=== PATIENT | female | born 1965 | race Caucasian/White ===

== ENCOUNTER 2017-12-01 23:58 | Emergency (ER) | payer MEDICAID, OTHER ==
[~2017-12-01] VITALS: Ht 162.6 cm; Wt 98.9 kg
[2017-12-02] MEDS ORDERED: AMIT25TA9 (00:41)
[2017-12-02] MEDS ORDERED: FENO160T12 (00:41)
[2017-12-02] MEDS ORDERED: GABA-488 (00:41)
[2017-12-02] MEDS ORDERED: LOSA100T28 (00:41)
[2017-12-02] MEDS ORDERED: METF750T2 (00:41)
[2017-12-02] MEDS ORDERED: RANI150T11 (00:41)
--- NOTE | 2017-12-02 01:10 | ED Back Pain ---
General Chief Complaint: Back Problems Stated Complaint: BACK PAIN,RT LEG & KNEE PAIN Nursing Triage Note: lower back pain Nursing Sepsis Screen: No Definite Risk Source of Information: Patient Exam Limitations: No Limitations History of Present Illness Date Seen by Provider: Dec 02, 2017 Time Seen by Provider: 01:04 Initial Comments Patient presents to the ER by private conveyance with a chief complaint for the past couple days she's had a re-flare of her sciatica pain on the right side. She says for many years she's had a bulging disc at her L5-S1 that has caused her to have sciatic pain right more than left. Tonight she had a little incontinence. She says that this is known and then worked up by her primary care physician she has plans when she gets back home to have MRI of her back this week as well as she has referrals to orthopods, pain specialist etc. She has poorly controlled diabetes on metformin without insulin and an A1c recently of about 9. She takes medicines for her blood pressure. She has never had coronary artery disease however she has had some ulcers in her stomach and had to have emergency surgery for a perforated bleeding ulcer about 6 months ago so she avoids NSAIDs. She says what aggravated her pain is because her daughter is giving and she's had to lay on an uncomfortable couch up stairs in the OB floor. The patient is from [place], [place]. Allergies and Home Medications Allergies Coded Allergies: No Known Drug Allergies (Unverified , 12/02/17) Patient Home Medication List Home Medication List Reviewed: Yes Constitutional: No chills, No diaphoresis, No fever, No malaise EENTM: No ear discharge, No ear pain Respiratory: No cough, No phlegm Cardiovascular: No chest pain, No Hx of Intervention, No palpitations Gastrointestinal: No abdominal pain, No constipation, No diarrhea, No nausea Genitourinary: No discharge, No dysuria Musculoskeletal: see HPI, back pain, joint pain Past Vjbeuzr-Udvjwc-Mklpxm Hx Patient Social History Alcohol Use: Denies Use Recreational Drug Use: No Smoking Status: Current Everyday Smoker Type Used: Cigarettes 2nd Hand Smoke Exposure: Yes Recent Foreign Travel: No Contact w/Someone Who Travel: No Recent Infectious Disease Expo: No Recent Hopitalizations: No Seasonal Allergies Seasonal Allergies: Yes Surgeries History of Surgeries: Yes Surgeries: Abdominal, Appendectomy, Orthopedic, Tubal Ligation Respiratory History of Respiratory Disorde: No Cardiovascular History of Cardiac Disorders: No Neurological History of Neurological Disord: Yes Neurological Disorders: Headaches /Migraines 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 Genitourinary History of Genitourinary Disor: No Gastrointestinal History of Gastrointestinal Di: Yes Gastrointestinal Disorders: Gastroesophageal Reflux Musculoskeletal History of Musculoskeletal Dis: Yes Musculoskeletal Disorders: Arthritis, Fibromyalgia, Chronic Back Pain Endocrine History of Endocrine Disorders: Yes Endocrine Disorders: Diabetes, Non-Insulin dep HEENT History of HEENT Disorders: No Cancer History of Cancer: No Psychosocial History of Psychiatric Problem: No Integumentary History of Skin or Integumenta: No Blood Transfusions History of Blood Disorders: No Physical Exam Vital Signs Vital Signs - First Documented 12/02/17 00:30 Temp 98.2 Pulse 99 Resp 16 B/P (MAP) 128/83 (98) Pulse Ox 97 O2 Delivery Room Air Capillary Refill : Less Than 3 Seconds General Appearance: No Apparent Distress, WD/WN HEENT: PERRL/EOMI, Pharynx Normal Neck: Full Range of Motion, Normal Inspection, Non Tender Cardiovascular: Regular Rate, Rhythm, No Edema Respiratory: No Accessory Muscle Use, No Respiratory Distress Peripheral Pulses: 2+ Dorsalis Pedis (R), 2+ Left Dors-Pedis (L), 2+ Radial Pulses (R), 2+ Radial Pulses (L) Back: Normal Inspection, Vertebral Tenderness (lumbar midline and across the L5 -S1 facet joint) Extremity: Normal Capillary Refill, No Calf Tenderness Neurologic/Psychiatric: Alert, Oriented x3, No Motor/Sensory Deficits, Normal Mood/Affect, chemical educator II-XII Norm as Tested Skin: Normal Color, Warm/Dry Additional Procedures : Progress L5-S1 intra-articular injection. Patient had the risks benefits and alternatives discussed and she consented to the procedure. A mixture of 7 mg dexamethasone, 4 mL of 1% lidocaine without epinephrine and 4 mL of 0.5% Marcaine with epinephrine and a 25-gauge 1-1/2 inch needle was prepared. Side of her pain on the right L5-S1 was marked and then the site was cleaned thoroughly using Betadine followed by alcohol. After it dried needle was introduced, aspirated without any blood return and then an injection of the mixture was tolerated well. Patient was beginning to have some relief of the time the procedure was done. A Band-Aid was applied after the site was wiped again with alcohol and the wound was hemostatic. Patient tolerated the procedure well. Progress/Results/Core Measures Results/Orders My Orders Orders - [place] BAJWA Lidocaine 1% (Xylocaine 1%) (12/02/17 01:15) Bupivacaine 0.5% W/Epi Inj (Sensorcaine (12/02/17 01:15) Dexamethasone Injection (Decadron Inject (12/02/17 01:15) Bupivacaine 0.5% Injection (Sensorcaine (12/02/17 01:17) Bupivacaine 0.5% Injection (Sensorcaine (12/02/17 01:18) Medications Given in ED Current Medications Medications Dose Ordered Sig/Noah Route Start Time Stop Time Status Last Admin Dose Admin Bupivacaine HCl/ Epinephrine Bitart 30 ml ONCE ONCE INJ 12/02/17 01:15 12/02/17 01:16 DC 12/02/17 01:26 30 ML Dexamethasone Sodium Phosphate 10 mg ONCE ONCE IM 12/02/17 01:15 12/02/17 01:16 DC 12/02/17 01:25 10 MG Lidocaine HCl 50 ml ONCE ONCE IJ 12/02/17 01:15 12/02/17 01:16 DC 12/02/17 01:25 50 ML Vital Signs/I&O Vital Sign - Last 12Hours 12/02/17 00:30 Temp 98.2 Pulse 99 Resp 16 B/P (MAP) 128/83 (98) Pulse Ox 97 O2 Delivery Room Air Blood Pressure Mean: 98 Progress Note : Time: 01:07 Progress Note Patient has point tenderness over the L5-S1 facet joint with sciatica down to her knee and incontinence. She has imaging set up this week as well as extensive follow-up from her primary care doctor. She would prefer to keep these appointments rather than do a CT tonight that would need repeated as an MRI just a few days later. 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 We'll plan to put a L5-S1 facet joint intra-articular injection of dexamethasone, Marcaine with epinephrine and lidocaine 1%. We've discussed the risks benefits and alternatives and how we'll affect her blood pressure and blood sugar and she is okay to proceed. Departure Impression Impression: Primary Impression: Lumbago Qualified Codes: M54.41 - Lumbago with sciatica, right side Disposition: 01 HOME, SELF-CARE Condition: Improved Departure-Patient Inst. Decision time for Depature: 01:46 Referrals: NO,LOCAL PHYSICIAN (PCP/Family) Primary Care Physician Patient Instructions: Low Back Pain (DC) Add. Discharge Instructions: Stay mobile use Tylenol 1000 mg every 6 hours and get some icy hot or other similar cream to put over your back. Get a back brace and wear it on the days that it helps. Keep your follow-up appointment this week with your primary care physician's appointments and imaging studies. If you're pain or incontinence worsens you should return to care. All discharge instructions reviewed with patient and/or family. Voiced understanding. WELLINGTON BAJWA Dec 02, 2017 01:10
[2017-12-02] MEDS ORDERED: DEXAMETHASONE 10 MG/ML (DECADRON) 1 ML VIAL IM ONE (01:15)
[2017-12-02] MEDS ORDERED: LIDOCAINE 1% INJ 50 ML (XYLOCAINE) VIAL IJ ONE (01:15)
[2017-12-02] MEDS ORDERED: BUP/EPI 0.5% 1:200,000 (SENSORCAINE) 30 ML VIAL INJ ONE (01:15)
[2017-12-02] MEDS ORDERED: BUPIVACAINE 0.5% 30 ML (SENSORCAINE) VIAL ONE ×2 (01:17→01:18)
[2017-12-02 01:50] VITALS: BP 124/79
--- OUTSIDE RECORDS SUMMARY | 2017-12-03 06:42 | XMS REPORT | Continuity of Care Document ---
Author Author [facility]. Organization [facility]. 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 Ampul.neb., 2.5 Mg Ih As needed Unknown Discontinued Amoxicillin (Amoxil*) 500 Mg Capsule Capsule, 500 Mg Po Three times daily Discontinued Duloxetine Hydrochloride (Cymbalta) 60 Mg Cap Cap, 60 Mg Po Twice daily Unknown Discontinued Hydrocodone/Acetaminophen ([place]) 5 Mg/325 Mg Tablet Tablet, 1-2 Tab Po Q4-6 HR PRN Pain 06/22/16 Discontinued Metformin Hydrochloride (Metformin) 500 Mg Tab Tab, 500 Mg Po Twice daily Unknown Discontinued Pantoprazole (Protonix) 40 Mg Tablet Tablet, 40 Mg Po Once daily Unknown Discontinued Rabeprazole (Aciphex) 20 Mg Tablet Tablet, 1 Tab Po Twice daily Unknown Discontinued Trazodone Hydrochloride (Trazadone Hydrochloride) 100 Mg Tab Tab, 100 Mg Po At bedtime Unknown Discontinued Amlodipine (Norvasc) 10 Mg Tablet Tablet, 10 Mg Po Once a day Unknown Discontinued Diltiazem (Cardizem) 30 Mg Tablet Tablet, 30 Mg Po Twice daily Unknown Discontinued Metronidazole (Flagyl) 500 Mg Tablet Tablet, 500 Mg Po Three times daily Discontinued Oxycodone/Acetaminophen (Percocet) 5 Mg/325 Mg Tablet Tablet, 1-2 Tab Po Every six hours as needed PRN NEEDED FOR PAIN 11/06/16 Discontinued Family History Relationship Name Date of Condition Age ( At Onset ) Cause of Age ( At ) Age Gender Recorded Date/Time SISTER Family history of malignant neoplasm F 01/03/17 2246 Social History Problem Response Recorded Date Occupation/Former Occupation: UNEMPLOYED 10/22/10 Query Response Start Date Stop Date Smoking status: Current every day smoker Hospital Discharge Instructions No hospital discharge instructions. Plan of Care Discharge Date 01/03/17 Disposition 01-HOME, SELF-CARE,ASST LIVING Condition at Discharge Stable Instructions/Education Provided Knee Pain (DC) Prescriptions See Medications Section Referrals [facility] - Additional Instructions/Education return for worsening pain, swelling, weakness, numbness or any other concern. followup with primary care in the next 1 week for a repeat evaluation. ICE your R knee regularly. Keep it elevated for the next several days. Use charu wrap for compression to help reduce swelling. Some of your test results may not be complete prior to your leaving the Emergency Department. The Emergency Department is not authorized to give test results over the phone. Please contact the doctor's office listed on this form for your final results. Follow up with your primary care physician or return to the Emergency Department for worsening or worrisome symptoms. * Emergency Department phone number: [phone] MEDICAL RECORD If you need copies of your X-rays, call [phone]. If you need copies of your medical record, including lab results, a signed authorization for release of records will be required. A telephone call for release of Health Information is not allowed. BILLING Billing can sometimes be confusing and frustrating. To help avoid confusion in the future, please take a moment to acquaint yourself with the billing parties for services. SERVICE [employer] [facility] [phone] X-rays [facility] Patients will receive bills for services from the appropriate provider. If you have any questions about your [facility] bill, our staff will be happy to assist you. Please call [phone] and ask for the billing department. THANK YOU for choosing [facility] as your emergency care provider. Care Plan and Goals CP~~Discharge Care Plan~~ Problem: Knee pain Goal: Decreased level of pain. Return to usual activities. Instructions: Take medication(s) as directed; follow up with primary care physician as directed; follow patient home care instructions. 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 Immunizations No Known History of Immunizations. Vital Signs Vital Reading Collection Date/Time Result Blood Pressure 01/03/17 10:44pm 176/85 Blood Pressure Source 01/03/17 10:44pm Sitting Patient Temperature 01/03/17 10:01pm 98.5 Temperature Source 01/03/17 10:01pm Oral Respiratory Rate 01/03/17 10:01pm 20 Pulse Rate 01/03/17 10:44pm 80 Pulse Location 01/03/17 10:44pm Pulse Oximetry Bedside Pulse Oximetry 01/03/17 10:44pm 100 Height 01/03/17 10:01pm 162.6 cm Height 01/03/17 10:01pm 5 ft 04 in Weight 01/03/17 10:01pm 94.5 kg Weight 01/03/17 10:01pm 208.0 lb Body Mass Index 01/03/17 10:01pm 35.7 Results No known relevant diagnostic tests, laboratory data and/or discharge summary. Procedures No Known History of Procedures. Encounters Encounter Location Arrival/Admit Date Discharge/Depart Date Attending Provider Departed Emergency [facility] 01/03/17 9:54pm 01/03/17 10:45pm Shoaib Russell MD Encounter Diagnosis Effusion of right knee
--- OUTSIDE RECORDS SUMMARY | 2017-12-03 06:42 | XMS REPORT | Continuity of Care Document ---
Author Author [facility]. Organization [facility]. 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 Medications Current Home Medications Medication Dose Units Route Directions Days/Qty Instructions Start Date Metformin Hydrochloride (Metformin) 500 MG TAB 500 MG PO Twice daily Trazodone Hydrochloride (Trazadone Hydrochloride) 100 MG TAB 100 MG PO At bedtime amLODIPine (Norvasc) 10 MG TABLET 10 MG PO Once a day diltiaZEM (Cardizem) 30 MG TABLET 30 MG PO Twice daily oxyCODONE/Acetaminophen (Percocet) 5 MG/325 MG TABLET 1-2 TAB PO Every six hours as needed PRN NEEDED FOR PAIN 20 11/06/16 Past Home Medications Medication Directions Ordered Status Albuterol (Proventil 0.083% Neb Soln) 2.5 Mg/3 Ml Ampul.neb. Ampul.neb., 2.5 Mg Ih As needed Unknown Discontinued Amoxicillin (Amoxil*) 500 Mg Capsule Capsule, 500 Mg Po Three times daily Discontinued Duloxetine Hydrochloride (Cymbalta) 60 Mg Cap Cap, 60 Mg Po Twice daily Unknown Discontinued Hydrocodone/Acetaminophen ([place]) 5 Mg/325 Mg Tablet Tablet, 1-2 Tab Po Q4-6 HR PRN Pain 06/22/16 Discontinued Pantoprazole (Protonix) 40 Mg Tablet Tablet, 40 Mg Po Once daily Unknown Discontinued Rabeprazole (Aciphex) 20 Mg Tablet Tablet, 1 Tab Po Twice daily Unknown Discontinued Metronidazole (Flagyl) 500 Mg Tablet Tablet, 500 Mg Po Three times daily Discontinued Family History Relationship Name Date of Condition Age ( At Onset ) Cause of Age ( At ) Age Gender Recorded Date/Time SISTER Family history of malignant neoplasm F 11/06/16 0510 Social History Problem Response Recorded Date Occupation/Former Occupation: UNEMPLOYED 10/22/10 Query Response Start Date Stop Date Smoking status: Current every day smoker Hospital Discharge Instructions No hospital discharge instructions. Plan of Care Discharge Date 11/06/16 Disposition 01-HOME, SELF-CARE,ASST LIVING Condition at Discharge Stable Instructions/Education Provided Oxycodone and Acetaminophen How to Use Crutches Hemarthrosis Prescriptions See Medications Section Referrals [facility] [place] - 1-2 days [facility] - Additional Instructions/Education USE CRUTCHES UNTIL YOU CAN WALK WITHOUT PAIN. USE THE CARLI WRAP AND ELEVATE YOUR LEG ABOVE YOUR HEART FOR THE NEXT 3-4 DAYS. USE ICE FOR THE NEXT 2 DAYS AND THEN ALTERNATE ICE AND HEAT. RETURN IMMEDIATELY FOR FEVERS, INCREASED PAIN, REDNESS OR ANY OTHER CONCERNS. Some of your test results may not [...] worrisome symptoms. * Emergency Department phone number: [phone] MEDICAL RECORD If you need copies of your X-rays, call [phone]. If you need copies of your medical [...] [facility] [employer] [facility] ED Physician Services [phone] X-rays [facility] Patients will receive bills for services from the appropriate provider. If you have any questions about your [facility] bill, our staff will be happy to assist you. Please call [phone] and ask for the billing department. THANK YOU for choosing [facility] as your emergency care provider. Care Plan and Goals ~~Discharge Care Plan~~ Problem: Sprain, strain or fracture of extremity Goal: Extremity will be pink and warm to touch, with good movement of fingers or toes. Instructions: Apply ice bag and elevate extremity above the level of your heart. Monitor extremity for pink color to fingers or toes and movement. Call your physician if extremity becomes blue in color or cool to touch. Some swelling of fingers or toes is expected, continue to wiggle fingers and toes and keep elevated. Allow 24-48 hours for the splint to dry completely. Do not place splint on a hard surface to avoid a pressure area. Take medication(s) as directed. Follow up with Orthopedic or primary care physician as directed. Functional Status No functional status results. Allergies, Adverse Reactions, Alerts Allergen Type Severity Reaction Status Last Updated aspirin Allergy Unknown Hives Active 11/06/16 Immunizations Name Date Given Type Tetanus Unknown Historical Vital Signs Vital Reading Collection Date/Time Result Blood Pressure 11/06/16 3:51am 136/94 Patient Temperature 11/06/16 3:51am 98.6 Temperature Source 11/06/16 3:51am Oral Respiratory Rate 11/06/16 4:40am 20 Pulse Rate 11/06/16 4:40am 104 Bedside Pulse Oximetry 11/06/16 4:40am 99 Height 11/06/16 3:51am 162.6 cm Height 11/06/16 3:51am 5 ft 04 in Weight 11/06/16 3:51am 92.7 kg Weight 11/06/16 3:51am 204.0 lb Body Mass Index 11/06/16 3:51am 35.1 Results Laboratory Results Test Name Result Units Flags Reference Collection Date/Time Result Date/ Time Comments Synovial Fluid WBC 4639 /mm3 H 200-600 11/06/16 5:45am 11/06/16 6:54am Synovial Fluid RBC [id number] /mm3 H 0-0 11/06/16 5:45am 11/06/16 6:54am Synovial Fluid Polynuclear WBCs % 58.5 % H 0-25 11/06/16 5:45am 6:54am Synovial Fluid Mononuclear WBCs % 41.5 % 0-75 11/06/16 5:45am 11/06/16 6:54am White Blood Count 15.1 K/mm3 H 4.8-10.8 11/06/16 4:20am 11/06/16 4:32am Red Blood Count 5.43 M/mm3 H 4.10-5.30 11/06/16 4:20am 11/06/16 4:32am Hemoglobin 11.2 g/dl L 12.5-16.0 11/06/16 4:20am 11/06/16 4:32am Hematocrit 37.8 % 37.0-47.0 11/06/16 4:20am 11/06/16 4:32am Mean Corpuscular Volume 70 fl L 80.0-100.0 11/06/16 4:20am 11/06/16 4: 32am Mean Corpuscular Hemoglobin 21 pg L 27.0-31.0 11/06/16 4:20am 11/06/16 4 :32am Mean Corpuscular Hemoglobin Concent 30 g/dl L 33.0-37.0 11/06/16 4:20am 11/06/16 4:32am Red Cell Distribution Width 15.1 % H 11.5-14.5 11/06/16 4:20am 11/06/16 4:32am Platelet Count 370 K/mm3 130-400 11/06/16 4:20am 11/06/16 4:32am Mean Platelet Volume 11.0 fl H 7.4-10.4 11/06/16 4:20am 11/06/16 4:32am Granulocytes (%) 68.1 % 42.2-75.2 11/06/16 4:20am 11/06/16 4:32am Lymphocytes % 20.3 % 20.0-51.0 11/06/16 4:20am 11/06/16 4:32am Monocytes % 9.0 % 1.7-9.3 11/06/16 4:20am 11/06/16 4:32am Eosinophils % 1.7 % 0-4.0 11/06/16 4:20am 11/06/16 4:32am Basophils % 0.6 % 0.0-2.0 11/06/16 4:20am 11/06/16 4:32am Granulocytes # 10.3 H 1.4-6.5 11/06/16 4:20am 11/06/16 4:32am Lymphocytes # 3.1 1.2-3.4 11/06/16 4:20am 11/06/16 4:32am Monocytes # 1.4 H 0.1-0.6 11/06/16 4:20am 11/06/16 4:32am Eosinophils # 0.3 0.0-0.7 11/06/16 4:20am 11/06/16 4:32am Basophils # 0.1 0.0-0.2 11/06/16 4:20am 11/06/16 4:32am Erythrocyte Sedimentation Rate 5 mm/hr 0-20 11/06/16 4:20am 11/06/16 6: 23am Prothrombin Time 10.7 SECONDS 9.7-12.8 11/06/16 4:20am 11/06/16 6:00am INR International Normalized Ratio 1.0 0.8-3.0 11/06/16 4:20am 6:00am Partial Thromboplastin Time - Tommy 34.8 SECONDS 26.0-37.0 11/06/16 4: 20am 11/06/16 6:00am Glucose Level 183 mg/dL H 74-106 11/06/16 4:20am 11/06/16 4:49am Blood Urea Nitrogen 18 mg/dL H 7-11/06/16 4:20am 11/06/16 4:49am Creatinine 0.77 mg/dL 0.52-1.25 11/06/16 4:20am 11/06/16 4:49am Estimated GFR () 96 11/06/16 4:20am 11/06/16 4: 49am Estimated GFR (Non- 79 11/06/16 4:20am 11/06/16 4: 49am eGFR Interpretation: Chronic Kidney Disease=CKD CKD STAGE I > or=90 mL/min/1.73 square meters STAGE II 60 - 89 STAGE III 30 - 59 STAGE IV 15 - 29 STAGE V <15 NOTE: The MDRD Study equation has not been validated for use with the elderly (over 70 years of age), women, patients with serious comorbid conditions, or persons with extremes of body size, muscle mass, or nutritional status. Sodium Level 136 mmol/L L 137-145 11/06/16 4:20am 11/06/16 4:49am Potassium Level 4.5 mmol/L 3.4-5.0 11/06/16 4:20am 11/06/16 4:49am Chloride Level 101 mmol/L 98-107 11/06/16 4:20am 11/06/16 4:49am Carbon Dioxide Level 23 mmol/L 22-30 11/06/16 4:20am 11/06/16 4:49am Anion Gap 12 mmol/L 7-11/06/16 4:20am 11/06/16 4:49am Uric Acid 3.6 mg/dL 2.5-6.2 11/06/16 4:20am 11/06/16 4:59am Calcium Level 10.3 mg/dL H 8.4-10.2 11/06/16 4:20am 11/06/16 4:49am Calcium Adjusted for Albumin 10.0 mg/dL 8.4-10.2 11/06/16 4:20am 4:49am Serum Total Protein 7.6 gm/dL 6.4-8.2 11/06/16 4:20am 11/06/16 4:49am Albumin 4.4 gm/dL 3.5-5.0 11/06/16 4:20am 11/06/16 4:49am Total Bilirubin 0.6 mg/dL 0.0-1.0 11/06/16 4:20am 11/06/16 4:49am Aspartate Amino Transf (AST/SGOT) 21 U/L 15-37 11/06/16 4:20am 4:49am Alanine Aminotransferase (ALT/SGPT) 40 U/L 9-52 11/06/16 4:20am 4:49am Alkaline Phosphatase 85 U/L 50-136 11/06/16 4:20am 11/06/16 4:49am C-Reactive Protein 0.7 mg/dL 0.0-0.9 11/06/16 4:20am 11/06/16 4:49am Procedures No Known History of Procedures. Encounters Encounter Location Arrival/Admit Date Discharge/Depart Date Attending Provider Departed Emergency [facility] 11/06/16 3:35am 11/06/16 7 :35am VERONICA AVELAR Encounter Diagnosis Hemarthrosis
--- OUTSIDE RECORDS SUMMARY | 2017-12-03 06:44 | XMS REPORT | Continuity of Care Document ---
Author Author [facility] Organization [facility] Address Unknown Phone Unavailable Allergies There is no data. Medications There is no data. Problems Date Dx Coded Attending Type Code Diagnosis Diagnosed By 01/24/2008 CHUYITA JULIEN 250.00 DIABETES MELLITUS 01/24/2008 CHUYITA JULIEN 278.00 OBESITY 01/24/2008 CHUYITA JULIEN 305.1 NICOTINE DEPENDENCE 01/24/2008 CHUYITA JULIEN 719.46 Pain in Joint Involving Lower Leg 01/24/2008 CHUYITA JULIEN 729.81 SWELLING OF LIMB 01/24/2008 CHUYITA JULIEN V58.69 LONG-TERM (CURRENT) USE OF OTHER MEDICATIONS 01/24/2008 CHUYITA JULIEN V68.1 visit for: issue repeat prescription for medication 01/24/2008 CHUYITA JULIEN V77.91 SCREENING FOR LIPOID DISORDERS 01/24/2008 CHUYITA JULIEN V81.5 SCREENING FOR NEPHROPATHY 01/24/2008 250.00 DIABETES MELLITUS 01/24/2008 278.00 OBESITY 01/24/2008 305.1 NICOTINE DEPENDENCE 01/24/2008 719.46 Pain in Joint Involving Lower Leg 01/24/2008 729.81 SWELLING OF LIMB 01/24/2008 V58.69 LONG-TERM ( CURRENT) USE OF OTHER MEDICATIONS 01/24/2008 V68.1 visit for: issue repeat prescription for medication 01/24/2008 V77.91 SCREENING FOR LIPOID DISORDERS 01/24/2008 V81.5 SCREENING FOR NEPHROPATHY 01/24/2008 250.00 DIABETES MELLITUS 01/24/2008 278.00 OBESITY 01/24/2008 305.1 NICOTINE DEPENDENCE 01/24/2008 719.46 Pain in Joint Involving Lower Leg 01/24/2008 729.81 SWELLING OF LIMB 01/24/2008 V58.69 LONG-TERM ( CURRENT) USE OF OTHER MEDICATIONS 01/24/2008 V68.1 visit for: issue repeat prescription for medication 01/24/2008 V77.91 SCREENING FOR LIPOID DISORDERS 01/24/2008 V81.5 SCREENING FOR NEPHROPATHY 01/24/2008 RUSS AKINS MD 250.00 DIABETES MELLITUS 01/24/2008 RUSS AKINS MD 278.00 OBESITY 01/24/2008 RUSS AKINS MD 305.1 NICOTINE DEPENDENCE 01/24/2008 RUSS AKINS MD 719.46 Pain in Joint Involving Lower Leg 01/24/2008 RUSS AKINS MD 729.81 SWELLING OF LIMB 01/24/2008 RUSS AKINS MD V58.69 LONG-TERM (CURRENT) USE OF OTHER MEDICATIONS 01/24/2008 RUSS AKINS MD V68.1 visit for: issue repeat prescription for medication 01/24/2008 RUSS AKINS MD V77.91 SCREENING FOR LIPOID DISORDERS 01/24/2008 RUSS AKINS MD V81.5 SCREENING FOR NEPHROPATHY 01/24/2008 250.00 DIABETES MELLITUS 01/24/2008 278.00 OBESITY 01/24/2008 305.1 NICOTINE DEPENDENCE 01/24/2008 719.46 Pain in Joint Involving Lower Leg 01/24/2008 729.81 SWELLING OF LIMB 01/24/2008 V58.69 LONG-TERM ( CURRENT) USE OF OTHER MEDICATIONS 01/24/2008 V68.1 visit for: issue repeat prescription for medication 01/24/2008 V77.91 SCREENING FOR LIPOID DISORDERS 01/24/2008 V81.5 SCREENING FOR NEPHROPATHY 01/24/2008 RUSS AKINS MD 250.00 DIABETES MELLITUS 01/24/2008 RUSS AKINS MD 278.00 OBESITY 01/24/2008 RUSS AKINS MD 305.1 NICOTINE DEPENDENCE 01/24/2008 RUSS AKINS MD 719.46 Pain in Joint Involving Lower Leg 01/24/2008 RUSS AKINS MD 729.81 SWELLING OF LIMB 01/24/2008 RUSS AKINS MD V58.69 LONG-TERM (CURRENT) USE OF OTHER MEDICATIONS 01/24/2008 RUSS AKINS MD V68.1 visit for: issue repeat prescription for medication 01/24/2008 RUSS AKINS MD V77.91 SCREENING FOR LIPOID DISORDERS 01/24/2008 RUSS AKINS MD V81.5 SCREENING FOR NEPHROPATHY 01/24/2008 250.00 DIABETES MELLITUS 01/24/2008 278.00 OBESITY 01/24/2008 305.1 NICOTINE DEPENDENCE 01/24/2008 719.46 Pain in Joint Involving Lower Leg 01/24/2008 729.81 SWELLING OF LIMB 01/24/2008 V58.69 LONG-TERM ( CURRENT) USE OF OTHER MEDICATIONS 01/24/2008 V68.1 MEDICATION MANAGEMENT 01/24/2008 V77.91 SCREENING FOR LIPOID DISORDERS 01/24/2008 V81.5 SCREENING FOR NEPHROPATHY 01/24/2008 DORETHA FLORICULTURE TEACHER, TRUDY K 250.00 DIABETES MELLITUS 01/24/2008 DORETHA FLORICULTURE TEACHER, TRUDY K 278.00 OBESITY 01/24/2008 DORETHA FLORICULTURE TEACHER, TRUDY K 305.1 NICOTINE DEPENDENCE 01/24/2008 DORETHA FLORICULTURE TEACHER, TRUDY K 719.46 Pain in Joint Involving Lower Leg 01/24/2008 DORETHA FLORICULTURE TEACHER, TRUDY K 729.81 SWELLING OF LIMB 01/24/2008 DORETHA FLORICULTURE TEACHER, TRUDY K V58.69 LONG-TERM (CURRENT) USE OF OTHER MEDICATIONS 01/24/2008 DORETHA CULP TRUDY K V68.1 MEDICATION MANAGEMENT 01/24/2008 DORETHA CULP TRUDY K V77.91 SCREENING FOR LIPOID DISORDERS 01/24/2008 DORETHA CULP TRUDY K V81.5 SCREENING FOR NEPHROPATHY 01/24/2008 PILI ZAVALA DO 250.00 DIABETES MELLITUS 01/24/2008 PILI ZAVALA DO 278.00 OBESITY 01/24/2008 PILI ZAVALA DO 305.1 NICOTINE DEPENDENCE 01/24/2008 PILI ZAVALA DO 719.46 Pain in Joint Involving Lower Leg 01/24/2008 PILI ZAVALA DO 729.81 SWELLING OF LIMB 01/24/2008 PILI ZAVALA DO V58.69 LONG-TERM (CURRENT) USE OF OTHER MEDICATIONS 01/24/2008 PILI ZAVALA DO V68.1 MEDICATION MANAGEMENT 01/24/2008 PILI ZAVALA DO V77.91 SCREENING FOR LIPOID DISORDERS 01/24/2008 PILI ZAVALA DO V81.5 SCREENING FOR NEPHROPATHY 01/24/2008 250.00 DIABETES MELLITUS 01/24/2008 278.00 OBESITY 01/24/2008 305.1 NICOTINE DEPENDENCE 01/24/2008 719.46 Pain in Joint Involving Lower Leg 01/24/2008 729.81 SWELLING OF LIMB 01/24/2008 V58.69 LONG-TERM ( CURRENT) USE OF OTHER MEDICATIONS 01/24/2008 V68.1 visit for: issue repeat prescription for medication 01/24/2008 V77.91 SCREENING FOR LIPOID DISORDERS 01/24/2008 V81.5 SCREENING FOR NEPHROPATHY 01/24/2008 250.00 DIABETES MELLITUS 01/24/2008 278.00 OBESITY 01/24/2008 305.1 NICOTINE DEPENDENCE 01/24/2008 719.46 Pain in Joint Involving Lower Leg 01/24/2008 729.81 SWELLING OF LIMB 01/24/2008 V58.69 LONG-TERM ( CURRENT) USE OF OTHER MEDICATIONS 01/24/2008 V68.1 visit for: issue repeat prescription for medication 01/24/2008 V77.91 SCREENING FOR LIPOID DISORDERS 01/24/2008 V81.5 SCREENING FOR NEPHROPATHY 01/24/2008 CHUYITA JULIEN 250.00 DIABETES MELLITUS 01/24/2008 CHUYITA JULIEN 278.00 OBESITY 01/24/2008 CHUYITA JULIEN 305.1 NICOTINE DEPENDENCE 01/24/2008 CHUYITA JULIEN 719.46 Pain in Joint Involving Lower Leg 01/24/2008 CHUYITA JULIEN 729.81 SWELLING OF LIMB 01/24/2008 CHUYITA JULIEN V58.69 LONG-TERM (CURRENT) USE OF OTHER MEDICATIONS 01/24/2008 CHUYITA JULIEN V68.1 visit for: issue repeat prescription for medication 01/24/2008 CHUYITA JULIEN V77.91 SCREENING FOR LIPOID DISORDERS 01/24/2008 CHUYITA JULIEN V81.5 SCREENING FOR NEPHROPATHY 01/24/2008 CHUYITA JULIEN 250.00 DIABETES MELLITUS 01/24/2008 CHUYITA JULIEN 278.00 OBESITY 01/24/2008 CHUYITA JULIEN 305.1 NICOTINE DEPENDENCE 01/24/2008 CHUYITA JULIEN 719.46 Pain in Joint Involving Lower Leg 01/24/2008 CHUYITA JULIEN 729.81 SWELLING OF LIMB 01/24/2008 CHUYITA JULIEN V58.69 LONG-TERM (CURRENT) USE OF OTHER MEDICATIONS 01/24/2008 CHUYITA JULIEN V68.1 visit for: issue repeat prescription for medication 01/24/2008 HCUYITA JULIEN V77.91 SCREENING FOR LIPOID DISORDERS 01/24/2008 CHUYITA JULIEN V81.5 SCREENING FOR NEPHROPATHY 01/24/2008 CHUYITA JULIEN 250.00 DIABETES MELLITUS 01/24/2008 CHUYITA JLUIEN 278.00 OBESITY 01/24/2008 CHUYITA JULIEN 305.1 NICOTINE DEPENDENCE 01/24/2008 CHUYITA JULIEN 719.46 Pain in Joint Involving Lower Leg 01/24/2008 CHUYITA JULIEN 729.81 SWELLING OF LIMB 01/24/2008 CHUYITA JULIEN V58.69 LONG-TERM (CURRENT) USE OF OTHER MEDICATIONS 01/24/2008 CHUYITA JULIEN V68.1 visit for: issue repeat prescription for medication 01/24/2008 CHUYITA JULIEN V77.91 SCREENING FOR LIPOID DISORDERS 01/24/2008 CHUYITA JULIEN V81.5 SCREENING FOR NEPHROPATHY 01/24/2008 CHUYITA JULIEN 250.00 DIABETES MELLITUS 01/24/2008 CHUYITA JULIEN 278.00 OBESITY 01/24/2008 CHUYITA JULIEN 305.1 NICOTINE DEPENDENCE 01/24/2008 CHUYITA JULIEN 719.46 Pain in Joint Involving Lower Leg 01/24/2008 CHUYITA JULIEN 729.81 SWELLING OF LIMB 01/24/2008 CHUYITA JULIEN V58.69 LONG-TERM (CURRENT) USE OF OTHER MEDICATIONS 01/24/2008 CHUYITA JULIEN V68.1 visit for: issue repeat prescription for medication 01/24/2008 CHUYITA JULIEN V77.91 SCREENING FOR LIPOID DISORDERS 01/24/2008 CHUYITA JULIEN V81.5 SCREENING FOR NEPHROPATHY 01/24/2008 250.00 DIABETES MELLITUS 01/24/2008 278.00 OBESITY 01/24/2008 305.1 NICOTINE DEPENDENCE 01/24/2008 719.46 Pain in Joint Involving Lower Leg 01/24/2008 729.81 SWELLING OF LIMB 01/24/2008 V58.69 LONG-TERM ( CURRENT) USE OF OTHER MEDICATIONS 01/24/2008 V68.1 visit for: issue repeat prescription for medication 01/24/2008 V77.91 SCREENING FOR LIPOID DISORDERS 01/24/2008 V81.5 SCREENING FOR NEPHROPATHY 01/24/2008 CHUYITA JULIEN 250.00 DIABETES MELLITUS 01/24/2008 CHUYITA JULIEN 278.00 OBESITY 01/24/2008 CHUYITA JULIEN 305.1 NICOTINE DEPENDENCE 01/24/2008 CHUYITA JULIEN 719.46 Pain in Joint Involving Lower Leg 01/24/2008 CHUYITA JULIEN 729.81 SWELLING OF LIMB 01/24/2008 CHUYITA JULIEN V58.69 LONG-TERM (CURRENT) USE OF OTHER MEDICATIONS 01/24/2008 CHUYITA JULIEN V68.1 visit for: issue repeat prescription for medication 01/24/2008 CHUYITA JULIEN V77.91 SCREENING FOR LIPOID DISORDERS 01/24/2008 CHUYITA JULIEN V81.5 SCREENING FOR NEPHROPATHY 01/24/2008 250.00 DIABETES MELLITUS 01/24/2008 278.00 OBESITY 01/24/2008 305.1 NICOTINE DEPENDENCE 01/24/2008 719.46 Pain in Joint Involving Lower Leg 01/24/2008 729.81 SWELLING OF LIMB 01/24/2008 V58.69 LONG-TERM ( CURRENT) USE OF OTHER MEDICATIONS 01/24/2008 V68.1 visit for: issue repeat prescription for medication 01/24/2008 V77.91 SCREENING FOR LIPOID DISORDERS 01/24/2008 V81.5 SCREENING FOR NEPHROPATHY 01/24/2008 CHUYITA JULIEN 250.00 DIABETES MELLITUS 01/24/2008 CHUYITA JULIEN 278.00 OBESITY 01/24/2008 CHUYITA JULIEN 305.1 NICOTINE DEPENDENCE 01/24/2008 CHUYITA JULIEN 719.46 Pain in Joint Involving Lower Leg 01/24/2008 CHUYITA JULIEN 729.81 SWELLING OF LIMB 01/24/2008 CHUYITA JULIEN V58.69 LONG-TERM (CURRENT) USE OF OTHER MEDICATIONS 01/24/2008 CHUYITA JULIEN V68.1 visit for: issue repeat prescription for medication 01/24/2008 CHUYITA JULIEN V77.91 SCREENING FOR LIPOID DISORDERS 01/24/2008 CHUYITA JULIEN V81.5 SCREENING FOR NEPHROPATHY 03/03/2009 CHUYITA JULIEN 280.9 IRON DEFICIENCY ANEMIA, UNSPECIFIED 03/03/2009 280.9 IRON DEFICIENCY ANEMIA, UNSPECIFIED 03/03/2009 280.9 IRON DEFICIENCY ANEMIA, UNSPECIFIED 03/03/2009 RUSS AKINS MD 280.9 IRON DEFICIENCY ANEMIA, UNSPECIFIED 03/03/2009 280.9 IRON DEFICIENCY ANEMIA, UNSPECIFIED 03/03/2009 RUSS AKINS MD 280.9 IRON DEFICIENCY ANEMIA, UNSPECIFIED 03/03/2009 280.9 IRON DEFICIENCY ANEMIA, UNSPECIFIED 03/03/2009 TRUDY COYNE APRN 280.9 IRON DEFICIENCY ANEMIA, UNSPECIFIED 03/03/2009 PILI ZAVALA DO 280.9 IRON DEFICIENCY ANEMIA, UNSPECIFIED 03/03/2009 280.9 IRON DEFICIENCY ANEMIA, UNSPECIFIED 03/03/2009 280.9 IRON DEFICIENCY ANEMIA, UNSPECIFIED 03/03/2009 CHUYITA JULIEN 280.9 IRON DEFICIENCY ANEMIA, UNSPECIFIED 03/03/2009 WILY, CHUYITA 280.9 IRON DEFICIENCY ANEMIA, UNSPECIFIED 03/03/2009 WILY, CHUYITA 280.9 IRON DEFICIENCY ANEMIA, UNSPECIFIED 03/03/2009 WILY, CHUYITA 280.9 IRON DEFICIENCY ANEMIA, UNSPECIFIED 03/03/2009 280.9 IRON DEFICIENCY ANEMIA, UNSPECIFIED 03/03/2009 KUMARESSA 280.9 IRON DEFICIENCY ANEMIA, UNSPECIFIED 03/03/2009 280.9 IRON DEFICIENCY ANEMIA, UNSPECIFIED 03/03/2009 WILY, CHUYITA 280.9 IRON DEFICIENCY ANEMIA, UNSPECIFIED 08/16/2010 CHUYITA JULIEN 787.01 nausea with vomiting 08/16/2010 CHUYITA JULIEN 789.01 abdominal pain in the right upper belly (RUQ) 08/16/2010 787.01 nausea with vomiting 08/16/2010 789.01 abdominal pain in the right upper belly (RUQ) 08/16/2010 787.01 nausea with vomiting 08/16/2010 789.01 abdominal pain in the right upper belly (RUQ) 08/16/2010 RUSS AKINS MD 787.01 nausea with vomiting 08/16/2010 RUSS AKINS MD 789.01 abdominal pain in the right upper belly (RUQ) 08/16/2010 787.01 nausea with vomiting 08/16/2010 789.01 abdominal pain in the right upper belly (RUQ) 08/16/2010 RUSS AKINS MD 787.01 nausea with vomiting 08/16/2010 RUSS AKINS MD 789.01 abdominal pain in the right upper belly (RUQ) 08/16/2010 787.01 nausea with vomiting 08/16/2010 789.01 abdominal pain in the right upper belly (RUQ) 08/16/2010 TRUDY COYNE APRN 787.01 nausea with vomiting 08/16/2010 TRUDY COYNE APRN K 789.01 abdominal pain in the right upper belly (RUQ) 08/16/2010 PILI ZAVALA DO 787.01 nausea with vomiting 08/16/2010 PILI ZAVALA DO 789.01 abdominal pain in the right upper belly (RUQ) 08/16/2010 787.01 nausea with vomiting 08/16/2010 789.01 abdominal pain in the right upper belly (RUQ) 08/16/2010 787.01 nausea with vomiting 08/16/2010 789.01 abdominal pain in the right upper belly (RUQ) 08/16/2010 CHUYITA JULIEN 787.01 nausea with vomiting 08/16/2010 CHUYITA JULIEN 789.01 abdominal pain in the right upper belly (RUQ) 08/16/2010 CHUYITA JULIEN 787.01 nausea with vomiting 08/16/2010 CHUYITA JULIEN 789.01 abdominal pain in the right upper belly (RUQ) 08/16/2010 CHUYITA JULIEN 787.01 nausea with vomiting 08/16/2010 CHUYITA JULIEN 789.01 abdominal pain in the right upper belly (RUQ) 08/16/2010 CHUYITA JULIEN 787.01 nausea with vomiting 08/16/2010 CHUYITA JULIEN 789.01 abdominal pain in the right upper belly (RUQ) 08/16/2010 787.01 nausea with vomiting 08/16/2010 789.01 abdominal pain in the right upper belly (RUQ) 08/16/2010 CHUYITA JULIEN 787.01 nausea with vomiting 08/16/2010 CHUYITA JULIEN 789.01 abdominal pain in the right upper belly (RUQ) 08/16/2010 787.01 nausea with vomiting 08/16/2010 789.01 abdominal pain in the right upper belly (RUQ) 08/16/2010 CHUYITA JULIEN 787.01 nausea with vomiting 08/16/2010 CHUYITA JULIEN 789.01 abdominal pain in the right upper belly (RUQ) 08/30/2010 CHUYITA JULIEN 571.8 OTHER CHRONIC NONALCOHOLIC LIVER DISEASE 08/30/2010 571.8 OTHER CHRONIC NONALCOHOLIC LIVER DISEASE 08/30/2010 571.8 OTHER CHRONIC NONALCOHOLIC LIVER DISEASE 08/30/2010 RUSS AKINS MD 571.8 OTHER CHRONIC NONALCOHOLIC LIVER DISEASE 08/30/2010 571.8 OTHER CHRONIC NONALCOHOLIC LIVER DISEASE 08/30/2010 RUSS AKINS MD 571.8 OTHER CHRONIC NONALCOHOLIC LIVER DISEASE 08/30/2010 571.8 OTHER CHRONIC NONALCOHOLIC LIVER DISEASE 08/30/2010 TRUDY COYNE APRN 571.8 OTHER CHRONIC NONALCOHOLIC LIVER DISEASE 08/30/2010 PILI ZAVALA DO 571.8 OTHER CHRONIC NONALCOHOLIC LIVER DISEASE 08/30/2010 571.8 OTHER CHRONIC NONALCOHOLIC LIVER DISEASE 08/30/2010 571.8 OTHER CHRONIC NONALCOHOLIC LIVER DISEASE 08/30/2010 CHUYITA JULIEN 571.8 OTHER CHRONIC NONALCOHOLIC LIVER DISEASE 08/30/2010 CHUYITA JULIEN 571.8 OTHER CHRONIC NONALCOHOLIC LIVER DISEASE 08/30/2010 CHUYITA JULIEN 571.8 OTHER CHRONIC NONALCOHOLIC LIVER DISEASE 08/30/2010 CHUYITA JULIEN 571.8 OTHER CHRONIC NONALCOHOLIC LIVER DISEASE 08/30/2010 571.8 OTHER CHRONIC NONALCOHOLIC LIVER DISEASE 08/30/2010 CHUYITA JULIEN 571.8 OTHER CHRONIC NONALCOHOLIC LIVER DISEASE 08/30/2010 571.8 OTHER CHRONIC NONALCOHOLIC LIVER DISEASE 08/30/2010 CHUYITA JULIEN 571.8 OTHER CHRONIC NONALCOHOLIC LIVER DISEASE 05/09/2011 CHUYITA JULIEN 716.90 ARTHRITIS 05/09/2011 CHUYITA JULIEN 724.3 SCIATICA 05/09/2011 716.90 ARTHRITIS 05/09/2011 724.3 SCIATICA 05/09/2011 716.90 ARTHRITIS 05/09/2011 724.3 SCIATICA 05/09/2011 RUSS AKINS MD 716.90 ARTHRITIS 05/09/2011 RUSS AKINS MD 724.3 SCIATICA 05/09/2011 716.90 ARTHRITIS 05/09/2011 724.3 SCIATICA 05/09/2011 MABLE DENNEY, RUSS 716.90 ARTHRITIS 05/09/2011 RUSS AKINS MD 724.3 SCIATICA 05/09/2011 716.90 ARTHRITIS 05/09/2011 724.3 SCIATICA 05/09/2011 TRUDY COYNE APRN K 716.90 ARTHRITIS 05/09/2011 TRUDY COYNE APRN K 724.3 SCIATICA 05/09/2011 PILI ZAVALA DO 716.90 ARTHRITIS 05/09/2011 PILI ZAVALA DO 724.3 SCIATICA 05/09/2011 716.90 ARTHRITIS 05/09/2011 724.3 SCIATICA 05/09/2011 716.90 ARTHRITIS 05/09/2011 724.3 SCIATICA 05/09/2011 CHUYITA JULIEN 716.90 ARTHRITIS 05/09/2011 CHUYITA JULIEN 724.3 SCIATICA 05/09/2011 CHUYITA JULIEN 716.90 ARTHRITIS 05/09/2011 CHUYITA JULIEN 724.3 SCIATICA 05/09/2011 CHUYITA JULIEN 716.90 ARTHRITIS 05/09/2011 CHUYITA JULIEN 724.3 SCIATICA 05/09/2011 CHUYITA JULIEN 716.90 ARTHRITIS 05/09/2011 CHUYITA JULIEN 724.3 SCIATICA 05/09/2011 716.90 ARTHRITIS 05/09/2011 724.3 SCIATICA 05/09/2011 CHUYITA JULIEN 716.90 ARTHRITIS 05/09/2011 CHUYITA JULIEN 724.3 SCIATICA 05/09/2011 716.90 ARTHRITIS 05/09/2011 724.3 SCIATICA 05/09/2011 CHUYITA JULIEN 716.90 ARTHRITIS 05/09/2011 CHUYITA JULIEN 724.3 SCIATICA 06/13/2011 CHUYITA JULIEN 724.5 BACKACHE 06/13/2011 CHUYITA JULIEN 729.2 RADICULOPATHY 06/13/2011 724.5 BACKACHE 06/13/2011 729.2 RADICULOPATHY 06/13/2011 724.5 BACKACHE 06/13/2011 729.2 RADICULOPATHY 06/13/2011 MABLE DENNEY, RUSS 724.5 BACKACHE 06/13/2011 MABLE DENNEY, RUSS 729.2 RADICULOPATHY 06/13/2011 724.5 BACKACHE 06/13/2011 729.2 RADICULOPATHY 06/13/2011 MABLE DENNEY, RUSS 724.5 BACKACHE 06/13/2011 MABLE DENNEY, RUSS 729.2 RADICULOPATHY 06/13/2011 724.5 BACKACHE 06/13/2011 729.2 RADICULOPATHY 06/13/2011 DORETHA CULP, TRUDY K 724.5 BACKACHE 06/13/2011 DORETHA CULP, TRUDY K 729.2 RADICULOPATHY 06/13/2011 PILI ZAVALA DO 724.5 BACKACHE 06/13/2011 PILI ZAVALA DO 729.2 RADICULOPATHY 06/13/2011 724.5 BACKACHE 06/13/2011 729.2 RADICULOPATHY 06/13/2011 724.5 BACKACHE 06/13/2011 729.2 RADICULOPATHY 06/13/2011 CHUYITA JULIEN 724.5 BACKACHE 06/13/2011 CHUYITA JULIEN 729.2 RADICULOPATHY 06/13/2011 CHUYITA JULIEN 724.5 BACKACHE 06/13/2011 CHUYITA JULIEN 729.2 RADICULOPATHY 06/13/2011 CHUYITA JULIEN 724.5 BACKACHE 06/13/2011 CHUYITA JULIEN 729.2 RADICULOPATHY 06/13/2011 CHUYITA JULIEN 724.5 BACKACHE 06/13/2011 CHUYITA JULIEN 729.2 RADICULOPATHY 06/13/2011 724.5 BACKACHE 06/13/2011 729.2 RADICULOPATHY 06/13/2011 CHUYITA JULIEN 724.5 BACKACHE 06/13/2011 CHUYITA JULIEN 729.2 RADICULOPATHY 06/13/2011 724.5 BACKACHE 06/13/2011 729.2 RADICULOPATHY 06/13/2011 CHUYITA JULIEN 724.5 BACKACHE 06/13/2011 CHUYITA JULIEN 729.2 RADICULOPATHY 12/29/2011 CHUYITA JULIEN 724.2 Lumbago/Low Back Pain 12/29/2011 724.2 Lumbago/Low Back Pain 12/29/2011 724.2 Lumbago/Low Back Pain 12/29/2011 RUSS AKINS MD 724.2 Lumbago/Low Back Pain 12/29/2011 724.2 Lumbago/Low Back Pain 12/29/2011 RUSS AKINS MD 724.2 Lumbago/Low Back Pain 12/29/2011 724.2 Lumbago/Low Back Pain 12/29/2011 TRUDY COYNE APRN 724.2 Lumbago/Low Back Pain 12/29/2011 PILI ZAVALA DO 724.2 Lumbago/Low Back Pain 12/29/2011 724.2 Lumbago/Low Back Pain 12/29/2011 724.2 Lumbago/Low Back Pain 12/29/2011 CHUYITA JULIEN 724.2 Lumbago/Low Back Pain 12/29/2011 CHUYITA JUILEN 724.2 Lumbago/Low Back Pain 12/29/2011 CHUYITA JULIEN 724.2 Lumbago/Low Back Pain 12/29/2011 CHUYITA JULIEN 724.2 Lumbago/Low Back Pain 12/29/2011 724.2 Lumbago/Low Back Pain 12/29/2011 CHUYITA JULIEN 724.2 Lumbago/Low Back Pain 12/29/2011 724.2 Lumbago/Low Back Pain 12/29/2011 CHUYITA JULIEN 724.2 Lumbago/Low Back Pain 01/05/2012 CHUYITA JULIEN 611.72 LUMP OR MASS IN BREAST 01/05/2012 611.72 LUMP OR MASS IN BREAST 01/05/2012 611.72 LUMP OR MASS IN BREAST 01/05/2012 RUSS AKINS MD 611.72 LUMP OR MASS IN BREAST 01/05/2012 611.72 LUMP OR MASS IN BREAST 01/05/2012 RUSS AKINS MD 611.72 LUMP OR MASS IN BREAST 01/05/2012 611.72 LUMP OR MASS IN BREAST 01/05/2012 TRUDY COYNE APRN 611.72 LUMP OR MASS IN BREAST 01/05/2012 PILI ZAVALA DO 611.72 LUMP OR MASS IN BREAST 01/05/2012 611.72 LUMP OR MASS IN BREAST 01/05/2012 611.72 LUMP OR MASS IN BREAST 01/05/2012 SHAN JULIENA 611.72 LUMP OR MASS IN BREAST 01/05/2012 SHAN JULIENA 611.72 LUMP OR MASS IN BREAST 01/05/2012 SHAN JULIENA 611.72 LUMP OR MASS IN BREAST 01/05/2012 SHAN JULIENA 611.72 LUMP OR MASS IN BREAST 01/05/2012 611.72 LUMP OR MASS IN BREAST 01/05/2012 SHAN JULIENA 611.72 LUMP OR MASS IN BREAST 01/05/2012 611.72 LUMP OR MASS IN BREAST 01/05/2012 CHUYITA JULIEN 611.72 LUMP OR MASS IN BREAST 05/17/2012 CHUYITA JULIEN 574.90 Cholelithiasis 05/17/2012 574.90 Cholelithiasis 05/17/2012 574.90 Cholelithiasis 05/17/2012 RUSS AKINS MD 574.90 Cholelithiasis 05/17/2012 574.90 Cholelithiasis 05/17/2012 RUSS AKINS MD 574.90 Cholelithiasis 05/17/2012 574.90 Cholelithiasis 05/17/2012 TRUDY COYNE APRN K 574.90 Cholelithiasis 05/17/2012 PILI ZAVALA DO 574.90 Cholelithiasis 05/17/2012 574.90 Cholelithiasis 05/17/2012 574.90 Cholelithiasis 05/17/2012 CHUYITA JULIEN 574.90 Cholelithiasis 05/17/2012 CHUYITA JULIEN 574.90 Cholelithiasis 05/17/2012 CHUYITA JULIEN 574.90 Cholelithiasis 05/17/2012 CHUYITA JULIEN 574.90 Cholelithiasis 05/17/2012 574.90 Cholelithiasis 05/17/2012 CHUYITA JULIEN 574.90 Cholelithiasis 05/17/2012 574.90 Cholelithiasis 05/17/2012 CHUYITA JULIEN 574.90 Cholelithiasis 03/25/2013 CHUYITA JULIEN 296.30 MAJOR DEPRESSIVE AFFECTIVE DISORDER RECURRENT EPISODE UNSPECIFIED DEGREE 03/25/2013 CHUYITA JULIEN 401.9 UNSPECIFIED ESSENTIAL HYPERTENSION 03/25/2013 296.30 MAJOR DEPRESSIVE AFFECTIVE DISORDER RECURRENT EPISODE UNSPECIFIED DEGREE 03/25/2013 401.9 UNSPECIFIED ESSENTIAL HYPERTENSION 03/25/2013 296.30 MAJOR DEPRESSIVE AFFECTIVE DISORDER RECURRENT EPISODE UNSPECIFIED DEGREE 03/25/2013 401.9 UNSPECIFIED ESSENTIAL HYPERTENSION 03/25/2013 RUSS AKINS MD 296.30 MAJOR DEPRESSIVE AFFECTIVE DISORDER RECURRENT EPISODE UNSPECIFIED DEGREE 03/25/2013 RUSS AKINS MD 401.9 UNSPECIFIED ESSENTIAL HYPERTENSION 03/25/2013 296.30 MAJOR DEPRESSIVE AFFECTIVE DISORDER RECURRENT EPISODE UNSPECIFIED DEGREE 03/25/2013 401.9 UNSPECIFIED ESSENTIAL HYPERTENSION 03/25/2013 RUSS AKINS MD 296.30 MAJOR DEPRESSIVE AFFECTIVE DISORDER RECURRENT EPISODE UNSPECIFIED DEGREE 03/25/2013 RUSS AKINS MD 401.9 UNSPECIFIED ESSENTIAL HYPERTENSION 03/25/2013 296.30 MAJOR DEPRESSIVE AFFECTIVE DISORDER RECURRENT EPISODE UNSPECIFIED DEGREE 03/25/2013 401.9 UNSPECIFIED ESSENTIAL HYPERTENSION 03/25/2013 TRUDY COYNE APRN 296.30 MAJOR DEPRESSIVE AFFECTIVE DISORDER RECURRENT EPISODE UNSPECIFIED DEGREE 03/25/2013 TRUDY COYNE APRN 401.9 UNSPECIFIED ESSENTIAL HYPERTENSION 03/25/2013 PILI ZAVALA DO 296.30 MAJOR DEPRESSIVE AFFECTIVE DISORDER RECURRENT EPISODE UNSPECIFIED DEGREE 03/25/2013 PILI ZAVALA DO 401.9 UNSPECIFIED ESSENTIAL HYPERTENSION 03/25/2013 296.30 MAJOR DEPRESSIVE AFFECTIVE DISORDER RECURRENT EPISODE UNSPECIFIED DEGREE 03/25/2013 401.9 UNSPECIFIED ESSENTIAL HYPERTENSION 03/25/2013 296.30 MAJOR DEPRESSIVE AFFECTIVE DISORDER RECURRENT EPISODE UNSPECIFIED DEGREE 03/25/2013 401.9 UNSPECIFIED ESSENTIAL HYPERTENSION 03/25/2013 CHUYITA JULIEN 296.30 MAJOR DEPRESSIVE AFFECTIVE DISORDER RECURRENT EPISODE UNSPECIFIED DEGREE 03/25/2013 CHUYITA JULIEN 401.9 UNSPECIFIED ESSENTIAL HYPERTENSION 03/25/2013 CHUYITA JULIEN 296.30 MAJOR DEPRESSIVE AFFECTIVE DISORDER RECURRENT EPISODE UNSPECIFIED DEGREE 03/25/2013 CHUYITA JULIEN 401.9 UNSPECIFIED ESSENTIAL HYPERTENSION 03/25/2013 CHUYITA JULIEN 296.30 MAJOR DEPRESSIVE AFFECTIVE DISORDER RECURRENT EPISODE UNSPECIFIED DEGREE 03/25/2013 CHUYITA JULIEN 401.9 UNSPECIFIED ESSENTIAL HYPERTENSION 03/25/2013 CHUYITA JULIEN 296.30 MAJOR DEPRESSIVE AFFECTIVE DISORDER RECURRENT EPISODE UNSPECIFIED DEGREE 03/25/2013 CHUYITA JULIEN 401.9 UNSPECIFIED ESSENTIAL HYPERTENSION 03/25/2013 296.30 MAJOR DEPRESSIVE AFFECTIVE DISORDER RECURRENT EPISODE UNSPECIFIED DEGREE 03/25/2013 401.9 UNSPECIFIED ESSENTIAL HYPERTENSION 03/25/2013 CHUYITA JULIEN 296.30 MAJOR DEPRESSIVE AFFECTIVE DISORDER RECURRENT EPISODE UNSPECIFIED DEGREE 03/25/2013 CHUYITA JULIEN 401.9 UNSPECIFIED ESSENTIAL HYPERTENSION 03/25/2013 296.30 MAJOR DEPRESSIVE AFFECTIVE DISORDER RECURRENT EPISODE UNSPECIFIED DEGREE 03/25/2013 401.9 UNSPECIFIED ESSENTIAL HYPERTENSION 03/25/2013 CHUYITA JULIEN 296.30 MAJOR DEPRESSIVE AFFECTIVE DISORDER RECURRENT EPISODE UNSPECIFIED DEGREE 03/25/2013 CHUYITA JULIEN 401.9 UNSPECIFIED ESSENTIAL HYPERTENSION 04/08/2013 CHUYITA JULIEN 789.05 ABDOMINAL PAIN PERIUMBILIC 04/08/2013 789.05 ABDOMINAL PAIN PERIUMBILIC 04/08/2013 789.05 ABDOMINAL PAIN PERIUMBILIC 04/08/2013 RUSS AKINS MD 789.05 ABDOMINAL PAIN PERIUMBILIC 04/08/2013 789.05 ABDOMINAL PAIN PERIUMBILIC 04/08/2013 RUSS AKINS MD 789.05 ABDOMINAL PAIN PERIUMBILIC 04/08/2013 789.05 ABDOMINAL PAIN PERIUMBILIC 04/08/2013 TRUDY COYNE APRN 789.05 ABDOMINAL PAIN PERIUMBILIC 04/08/2013 PILI ZAVALA DO 789.05 ABDOMINAL PAIN PERIUMBILIC 04/08/2013 789.05 ABDOMINAL PAIN PERIUMBILIC 04/08/2013 789.05 ABDOMINAL PAIN PERIUMBILIC 04/08/2013 CHUYITA JULIEN 789.05 ABDOMINAL PAIN PERIUMBILIC 04/08/2013 CHUYITA JULIEN 789.05 ABDOMINAL PAIN PERIUMBILIC 04/08/2013 CHUYITA JULIEN 789.05 ABDOMINAL PAIN PERIUMBILIC 04/08/2013 CHUYITA JUILEN 789.05 ABDOMINAL PAIN PERIUMBILIC 04/08/2013 789.05 ABDOMINAL PAIN PERIUMBILIC 04/08/2013 CHUYITA JULIEN 789.05 ABDOMINAL PAIN PERIUMBILIC 04/08/2013 789.05 ABDOMINAL PAIN PERIUMBILIC 04/08/2013 CHUYITA JULIEN 789.05 ABDOMINAL PAIN PERIUMBILIC 04/29/2013 CHUYITA JULIEN V72.84 PRE-OPERATIVE EXAMINATION UNSPECIFIED 04/29/2013 V72.84 PRE- OPERATIVE EXAMINATION UNSPECIFIED 04/29/2013 V72.84 PRE- OPERATIVE EXAMINATION UNSPECIFIED 04/29/2013 RUSS AKINS MD V72.84 PRE-OPERATIVE EXAMINATION UNSPECIFIED 04/29/2013 V72.84 PRE- OPERATIVE EXAMINATION UNSPECIFIED 04/29/2013 RUSS AKINS MD V72.84 PRE-OPERATIVE EXAMINATION UNSPECIFIED 04/29/2013 V72.84 PRE- OPERATIVE EXAMINATION UNSPECIFIED 04/29/2013 TRUDY COYNE APRN V72.84 PRE-OPERATIVE EXAMINATION UNSPECIFIED 04/29/2013 PILI ZAVALA DO V72.84 PRE-OPERATIVE EXAMINATION UNSPECIFIED 04/29/2013 V72.84 PRE- OPERATIVE EXAMINATION UNSPECIFIED 04/29/2013 CHUYITA JULIEN V72.84 PRE-OPERATIVE EXAMINATION UNSPECIFIED 04/29/2013 CHUYITA JULIEN V72.84 PRE-OPERATIVE EXAMINATION UNSPECIFIED 04/29/2013 CHUYITA JULIEN V72.84 PRE-OPERATIVE EXAMINATION UNSPECIFIED 04/29/2013 CHUYITA JULIEN V72.84 PRE-OPERATIVE EXAMINATION UNSPECIFIED 04/29/2013 V72.84 PRE- OPERATIVE EXAMINATION UNSPECIFIED 04/29/2013 CHUYITA JULIEN V72.84 PRE-OPERATIVE EXAMINATION UNSPECIFIED 04/29/2013 V72.84 PRE- OPERATIVE EXAMINATION UNSPECIFIED 04/29/2013 CHUYITA JULIEN V72.84 PRE-OPERATIVE EXAMINATION UNSPECIFIED 07/31/2013 CHUYITA JULIEN 337.1 PERIPHERAL 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 07/31/2013 337.1 PERIPHERAL 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 07/31/2013 337.1 PERIPHERAL 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 07/31/2013 RUSS AKINS MD 337.1 PERIPHERAL 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 07/31/2013 337.1 PERIPHERAL 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 07/31/2013 RUSS AKINS MD 337.1 PERIPHERAL 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 07/31/2013 337.1 PERIPHERAL 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 07/31/2013 TRUDY COYNE APRN 337.1 PERIPHERAL 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 07/31/2013 PILI ZAVALA DO 337.1 PERIPHERAL 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 07/31/2013 CHUYITA JULIEN 337.1 PERIPHERAL 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 07/31/2013 CHUYITA JULIEN 337.1 PERIPHERAL 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 07/31/2013 CHUYITA JULIEN 337.1 PERIPHERAL 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 07/31/2013 337.1 PERIPHERAL 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 07/31/2013 CHUYITA JULIEN 337.1 PERIPHERAL 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 07/31/2013 337.1 PERIPHERAL 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 07/31/2013 CHUYITA JULIEN 337.1 PERIPHERAL 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 12/03/2013 CHUYITA JULIEN 272.4 OTHER AND UNSPECIFIED HYPERLIPIDEMIA 12/03/2013 272.4 OTHER AND UNSPECIFIED HYPERLIPIDEMIA 12/03/2013 272.4 OTHER AND UNSPECIFIED HYPERLIPIDEMIA 12/03/2013 RUSS AKINS MD 272.4 OTHER AND UNSPECIFIED HYPERLIPIDEMIA 12/03/2013 272.4 OTHER AND UNSPECIFIED HYPERLIPIDEMIA 12/03/2013 RUSS AKINS MD 272.4 OTHER AND UNSPECIFIED HYPERLIPIDEMIA 12/03/2013 272.4 OTHER AND UNSPECIFIED HYPERLIPIDEMIA 12/03/2013 TRUDY COYNE APRN 272.4 OTHER AND UNSPECIFIED HYPERLIPIDEMIA 12/03/2013 PILI ZAVALA DO 272.4 OTHER AND UNSPECIFIED HYPERLIPIDEMIA 12/03/2013 CHUYITA JULIEN 272.4 OTHER AND UNSPECIFIED HYPERLIPIDEMIA 12/03/2013 272.4 OTHER AND UNSPECIFIED HYPERLIPIDEMIA 12/03/2013 CHUYITA JULIEN 272.4 OTHER AND UNSPECIFIED HYPERLIPIDEMIA 12/03/2013 272.4 OTHER AND UNSPECIFIED HYPERLIPIDEMIA 12/03/2013 CHUYITA JULIEN 272.4 OTHER AND UNSPECIFIED HYPERLIPIDEMIA 12/24/2013 CHUYITA JULIEN 401.1 HYPERTENSION, BENIGN ESSENTIAL 12/24/2013 401.1 HYPERTENSION, BENIGN ESSENTIAL 12/24/2013 401.1 HYPERTENSION, BENIGN ESSENTIAL 12/24/2013 RUSS AKINS MD 401.1 HYPERTENSION, BENIGN ESSENTIAL 12/24/2013 401.1 HYPERTENSION, BENIGN ESSENTIAL 12/24/2013 RUSS AKINS MD 401.1 HYPERTENSION, BENIGN ESSENTIAL 12/24/2013 401.1 HYPERTENSION, BENIGN ESSENTIAL 12/24/2013 TRUDY COYNE APRN 401.1 HYPERTENSION, BENIGN ESSENTIAL 12/24/2013 PILI ZAVALA DO 401.1 HYPERTENSION, BENIGN ESSENTIAL 12/24/2013 CHUYITA JULIEN 401.1 HYPERTENSION, BENIGN ESSENTIAL 12/24/2013 401.1 HYPERTENSION, BENIGN ESSENTIAL 12/24/2013 CHUYITA JULIEN 401.1 HYPERTENSION, BENIGN ESSENTIAL 04/18/2014 CHUYITA JULIEN V15.88 PERSONAL HISTORY OF FALL 04/18/2014 CHUYITA JULIEN V67.59 OTHER FOLLOW-UP EXAMINATION 04/18/2014 V15.88 PERSONAL HISTORY OF FALL 04/18/2014 V67.59 OTHER FOLLOW- UP EXAMINATION 04/18/2014 V15.88 PERSONAL HISTORY OF FALL 04/18/2014 V67.59 OTHER FOLLOW- UP EXAMINATION 04/18/2014 RUSS AKINS MD V15.88 PERSONAL HISTORY OF FALL 04/18/2014 RUSS AKINS MD V67.59 OTHER FOLLOW-UP EXAMINATION 04/18/2014 V15.88 PERSONAL HISTORY OF FALL 04/18/2014 V67.59 OTHER FOLLOW- UP EXAMINATION 04/18/2014 RUSS AKINS MD V15.88 PERSONAL HISTORY OF FALL 04/18/2014 RUSS AKINS MD V67.59 OTHER FOLLOW-UP EXAMINATION 04/18/2014 V15.88 PERSONAL HISTORY OF FALL 04/18/2014 V67.59 OTHER FOLLOW- UP EXAMINATION 04/18/2014 TRUDY COYNE APRN V15.88 PERSONAL HISTORY OF FALL 04/18/2014 TRUDY COYNE APRN V67.59 OTHER FOLLOW-UP EXAMINATION 04/18/2014 PILI ZAVALA DO V15.88 PERSONAL HISTORY OF FALL 04/18/2014 PILI ZAVALA DO V67.59 OTHER FOLLOW-UP EXAMINATION 06/17/2014 RUSS AKINS MD 338.4 CHRONIC PAIN SYNDROME 06/17/2014 RUSS AKINS MD 721.3 LUMBOSACRAL SPONDYLOSIS WITHOUT MYELOPATHY 06/17/2014 338.4 CHRONIC PAIN SYNDROME 06/17/2014 721.3 LUMBOSACRAL SPONDYLOSIS WITHOUT MYELOPATHY 06/17/2014 RUSS AKINS MD 338.4 CHRONIC PAIN SYNDROME 06/17/2014 RUSS AKINS MD 721.3 LUMBOSACRAL SPONDYLOSIS WITHOUT MYELOPATHY 06/17/2014 338.4 CHRONIC PAIN SYNDROME 06/17/2014 721.3 LUMBOSACRAL SPONDYLOSIS WITHOUT MYELOPATHY 06/17/2014 TRUDY COYNE APRN 338.4 CHRONIC PAIN SYNDROME 06/17/2014 TRUDY COYNE APRN 721.3 LUMBOSACRAL SPONDYLOSIS WITHOUT MYELOPATHY 06/17/2014 PILI ZAVALA DO 338.4 CHRONIC PAIN SYNDROME 06/17/2014 PILI ZAVALA DO 721.3 LUMBOSACRAL SPONDYLOSIS WITHOUT MYELOPATHY Procedures Code [place] [address] GLUCOSE BLOOD TEST 04/08/2013 23776 GLUCOSE BLOOD TEST 07/31/2013 42266 HEMOGLOBIN A1C (Inhouse) 07/31/2013 Neurology [place] 08/01/2013 74362 [facility] 09/30/2013 29470 URINE DIPSTICK (Inhouse) 09/30/2013 30470 MICROALBUMIN, SEMIQUANT 09/30/2013 98720 COMPREHENSIVE METABOLIC PANEL (Inhouse) 09/30/2013 61635 LIPID PANEL (Inhouse) 09/30/2013 22986 HEMOGLOBIN A1C (Inhouse) 09/30/2013 61117 COLLECTION, VENOUS BLOOD, VENIPUNCTURE 09/30/2013 17348 Physical Therapy Massage 09/30/2013 52430 Physical Therapy Modalities Heat 09/30/2013 65007 SPECIMEN HANDLING OFFICE- LAB 09/30/2013 37470 CBC WITH DIFFERENTIAL 10/01/2013 55783 URINE DIPSTICK (Inhouse) 12/03/2013 54850 HEMOGLOBIN A1C (Inhouse) 12/03/2013 17053 COMPREHENSIVE METABOLIC PANEL (Inhouse) 12/03/2013 68284 [facility] 12/04/2013 58048 SPECIMEN HANDLING OFFICE- LAB 12/04/2013 68706 INJECTION FEE 02/13/2014 J3301 TRIAMCINOLONE ACET INJ NOS per 10mg 02/13/2014 J1885 Ketorolac Tromethamine per 15mg/ml 02/13/2014 55648 GLUCOSE BLOOD TEST 02/13/2014 32806 URINE DIPSTICK (INHOUSE) 02/13/2014 14389 MICROALBUMIN, SEMIQUANT 02/13/2014 29985 HEMOGLOBIN A1C (INHOUSE) 02/13/2014 87381 LIPID PANEL (INHOUSE) 02/13/2014 78111 COMPREHENSIVE METABOLIC PANEL (INHOUSE) 02/13/2014 876585 STATUS REPORT 02/13/2014 44254 HEMOGLOBIN A1C (Inhouse) 04/18/2014 08921 [facility] 06/17/2014 70949 SPECIMEN HANDLING OFFICE- LAB 06/17/2014 89071 HEMOGLOBIN A1C (Inhouse) 08/19/2014 62426 COMPREHENSIVE METABOLIC PANEL (Inhouse) 08/19/2014 42882 GLUCOSE BLOOD TEST 03/03/2015 32111 HEMOGLOBIN A1C (Inhouse) 03/03/2015 25129 [facility] 05/11/2015 Results There is no data. Encounters ACCT No. Visit Date/Time Discharge Status Pt. Type Provider Facility Loc./Unit Complaint [id number] 05/11/2015 13:57:00 05/11/2015 23:59:59 CLS Outpatient PILI ZAVALA DO [id number] 03/03/2015 15:06:00 03/03/2015 23:59:59 CLS Outpatient TRUDY COYNE APRN [id number] 01/13/2015 14:10:00 01/13/2015 23:59:59 CLS Outpatient [id number] 10/21/2014 10:59:00 10/21/2014 23:59:59 CLS Outpatient RUSS AKINS MD [id number] 08/19/2014 16:28:00 08/19/2014 23:59:59 CLS Outpatient [id number] 06/17/2014 13:36:00 06/17/2014 23:59:59 CLS Outpatient RUSS AKINS MD [id number] 05/06/2014 12:40:00 05/06/2014 23:59:59 CLS Outpatient [id number] 05/01/2014 14:37:00 05/01/2014 23:59:59 CLS Outpatient [id number] 04/18/2014 08:51:00 04/18/2014 23:59:59 CLS Outpatient CHUYITA JULIEN [id number] 02/13/2014 09:26:00 02/13/2014 23:59:59 CLS Outpatient KUMARESSA [id number] 01/23/2014 14:16:00 01/23/2014 23:59:59 CLS Outpatient [id number] 12/24/2013 08:43:00 12/24/2013 23:59:59 CLS Outpatient CHUYITA JULIEN [id number] 12/10/2013 10:51:00 12/10/2013 23:59:59 CLS Outpatient [id number] 12/03/2013 09:35:00 12/03/2013 23:59:59 CLS Outpatient WILYQUEENIECHUYITA [id number] 09/30/2013 12:50:00 09/30/2013 23:59:59 CLS Outpatient CHUYITA JULIEN [id number] 07/31/2013 10:45:00 07/31/2013 23:59:59 CLS Outpatient CHUYITA JULIEN [id number] 06/10/2013 12:54:00 06/10/2013 23:59:59 CLS Outpatient CHUYITA JULIEN [id number] 05/22/2013 09:08:00 Document Registration [id number] 04/08/2013 09:35:00 Document Registration
== END 2017-12-02 01:49 | disposition home or self-care (01) ==
LOC: ER 12-02 00:04
DX: M54.5 Low back pain (principal); E11.9 Type 2 diabetes mellitus without complications; K21.9 Gastro-esophageal reflux disease without esophagitis; G43.909 Migraine, unspecified, not intractable, without status migrainosus; F17.210 Nicotine dependence, cigarettes, uncomplicated; Z98.51 Tubal ligation status; Z90.49 Acquired absence of other specified parts of digestive tract
CPT/HCPCS: 99284